=== PATIENT | female | born 1985 | race Two or more races ===

== ENCOUNTER 2023-08-20 17:03 | Emergency (ER) | payer SELFPAY ==
[2023-08-20 17:15] VITALS: BP 165/98; PULSE 84; RESP 16; TEMP 37.1; O2SAT 99; BMI 27.4
[2023-08-20 17:30] VITALS: BP 145/81
--- NOTE | 2023-08-20 17:47 | ED.GENADUL1 ---
HPI - General Adult General Chief complaint: Abdominal Pain Stated complaint: had a baby a few days ago at home, ill Time Seen by Provider: 08/20/23 17:11 Source: patient and family Mode of arrival: walk-in Limitations: language barrier Limitations comment: [place]ian speaking History of Present Illness HPI narrative: 37-year-old female who is eight days presents for a lump on her rectum. She feels like there is something there. No bleeding. She's never had hemorrhoids. Her ankles have been a little bit swollen as well. She's had the lump by her rectum since she delivered. She also had issues with constipation during the . Related Data Home Medications Medication Instructions Recorded Confirmed docusate sodium 100 mg capsule 100 mg PO DAILY 08/20/23 08/20/23 (Stool Softener) Previous Rx's Medication Instructions Recorded docusate sodium 100 mg capsule 100 mg PO BID #30 caps 08/20/23 (Colace) hydrocortisone 1 % topical cream 1 applic topical BID #28.4 grams 08/20/23 (Proctocort) Allergies Allergy/AdvReac Type Severity Reaction Status Date / Time No Known Drug Allergies Allergy Verified 08/20/23 17:15 Review of Systems ROS Narrative A ten point review of systems is negative except as noted above. PFSH PFSH Social History Smoking status: Never smoker Exam Narrative Exam Narrative: Nurses note and vital signs reviewed and patient is not hypoxic. General: The patient appears well and in no apparent distress. Patient is resting comfortably on cart. Skin: Warm, dry, no pallor noted. There is no rash noted. Head: Normocephalic, atraumatic Eye: Normal conjunctiva, no drainage Ears, Nose, Mouth, and Throat: oral mucosa is moist. Nares patent. Cardiovascular: Regular Rate and Rhythm Respiratory: Patient is in no distress, no accessory muscle use, lungs are clear to auscultation, no wheezing, rales or rhonchi Back: non-tender GI: abdomen nontender. Small nonthrombosed nonbleeding external hemorrhoid present. Musculoskeletal: bilateral ankle edema present Neurological: A&O, normal speech Psychiatric: Cooperative Constitutional Vital Signs, click to edit/add: Last Vital Signs Temp 98.7 F 08/20/23 17:15 Pulse 84 08/20/23 17:15 Resp 16 08/20/23 17:15 BP 165/98 H 08/20/23 17:15 Pulse Ox 99 08/20/23 17:15 O2 Del Method Room Air 08/20/23 17:15 Course Vital Signs Vital signs: Vital Signs Temperature 98.7 F 08/20/23 17:15 Pulse Rate 84 08/20/23 17:15 Respiratory Rate 16 08/20/23 17:15 Blood Pressure 165/98 H 08/20/23 17:15 Pulse Oximetry 99 08/20/23 17:15 Oxygen Delivery Method Room Air 08/20/23 17:15 Temperature 98.7 F 08/20/23 17:15 Pulse Rate 84 08/20/23 17:15 Respiratory Rate 16 08/20/23 17:15 Blood Pressure 165/98 H 08/20/23 17:15 Pulse Oximetry 99 08/20/23 17:15 Oxygen Delivery Method Room Air 08/20/23 17:15 Medical Decision Making MDM Narrative Medical decision making narrative: my clinical impressions that she has an external hemorrhoid. She was prescribed ProctoCream and will elevate her feet in regard to the ankle swelling. Treatment diagnosis and follow-up were discussed with the patient. Discharge Plan Discharge Chief Complaint: Abdominal Pain Clinical Impression: External hemorrhoid Patient Disposition: Home, Self-Care Time of Disposition Decision: 17:41 Condition: Good Mode of Transportation: Private Vehicle Prescriptions / Home Meds: New docusate sodium [Colace] 100 mg capsule 100 mg PO BID Qty: 30 0RF hydrocortisone [Proctocort] 1 % cream 1 applic topical BID Qty: 28.4 0RF No Action docusate sodium [Stool Softener] 100 mg capsule 100 mg PO DAILY Instructions: Hemorrhoids (ED) Stand Alone Forms: Portal Instructions Referrals: Physician,Non-Staff, MD [Primary Care Provider] - 1 week
== END 2023-08-20 18:01 | disposition home or self-care (01) ==
PROVIDERS: Emergency Provider Emergency Medicine
DX: O87.2 Hemorrhoids in the puerperium (principal)
CPT/HCPCS: 99284